=== PATIENT | female | born 1980 | race Two or more races ===

== ENCOUNTER 2023-10-18 11:17 | Emergency (ER) | payer SELFPAY ==
[~2023-10-18] VITALS: Ht 167.6 cm; Wt 107.0 kg
[2023-10-18 11:30] VITALS: BP 169/91; RESP 18; O2SAT 96
[2023-10-18 11:41] VITALS: PULSE 83
== END 2023-10-18 13:05 | disposition left against medical advice (07) ==
LOC: ER 11:17
DX: R06.02 Shortness of breath (principal); R11.0 Nausea; R07.89 Other chest pain; R55 Syncope and collapse; Z53.21 Procedure and treatment not carried out due to patient leaving prior to being seen by health care provider
CPT/HCPCS: 93005

== ENCOUNTER 2024-02-11 22:58 | Emergency (ER) | payer MEDICAID, OTHER ==
[~2024-02-11] VITALS: Ht 167.6 cm; Wt 111.3 kg
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
[2024-02-12] MEDS ORDERED: IBUP-1456 PO (01:41)
[2024-02-12] MEDS ORDERED: TIZA4TAB9 PO (01:41)
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
[2024-02-12 02:00] VITALS: BP 154/93; PULSE 97; RESP 18; TEMP 98.1; O2SAT 99
== END 2024-02-12 02:38 | disposition home or self-care (01) ==
LOC: ER 22:58
DX: S13.4XXA Sprain of ligaments of cervical spine, initial encounter (principal); S40.022A Contusion of left upper arm, initial encounter; Z79.899 Other long term (current) drug therapy; V43.62XA Car passenger injured in collision with other type car in traffic accident, initial encounter; Y93.89 Activity, other specified; Y92.410 Unspecified street and highway as the place of occurrence of the external cause; Y99.8 Other external cause status
CPT/HCPCS: 72040; 73080

== ENCOUNTER 2024-08-22 01:19 | Emergency (ER) | payer MEDICAID, OTHER ==
[~2024-08-22] VITALS: Ht 167.6 cm; Wt 104.6 kg
[2024-08-22] MEDS ORDERED: ACET500T58 PO (01:36)
[2024-08-22] MEDS ORDERED: AMOX875T4 PO (01:36)
--- NOTE | 2024-08-22 01:36 | ED.PDOC ---
Eye-HPI HPI Comments 44-year-old female presents to ER with complaints of fever x1 day. Patient reports that she has been experiencing intermittent fever and "mouth pain" x1 day. She rates her current mouth pain a 10/10. Reports that she took [id number] Tylenol 45 minutes prior to arrival to ER. Patient presents to ER afebrile, ambulatory, with steady gait, in no distress. Denies headache, nausea/vomiting, facial swelling/skin changes or any further symptoms/complaints Chief Complaint: Fever Time Seen by MD: 01:21 Primary Care Provider: JAMIN Reviewed Notes: Nurses Notes, Medications, Allergies Allergies: Coded Allergies: NO KNOWN ALLERGIES (Unverified , 11/07/11) Home Meds Active Scripts Amoxicillin & Pot Clavulanate (Amoxicillin/Potassium Cla) 875 Mg Tab, 1 TAB PO BID for 7 Days, #14 TAB 0 Refills Prov:KAY HAMPTON 08/22/24 Acetaminophen (Acetaminophen) 500 Mg Tab, 500 MG PO Q4HPRN, #30 TAB 0 Refills Prov:KAY HAMPTON 08/22/24 Information Source: Patient Past Medical History PAST MEDICAL HISTORY: Denies Surgical History: Denies all surgeries 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: No 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 Family History Family History: Unknown Social History Smoker: Non-Smoker Alcohol: Denies ETOH Use Drugs: Denies Drug Use Lives In: Home Constitutional: reports: others (As stated in HPI) EENTM: reports: others (As stated in HPI) Respiratory: denies: cough, hemoptysis, orthopnea, SOB at rest, shortness of breath, SOB with excertion, stridor, wheezing, others Cardiovascular: denies: chest pain, dizzy spells, diaphoresis, Dyspnea on exertion, edema, irregular heart beat, left arm pain, lightheadedness, palpitations, PND, syncope, others Gastrointestinal: denies: abdomen distended, abdominal pain, blood streaked bowels, constipated, diarrhea, dysphagia, difficulty swallowing, hematemesis, melena, nausea, poor appetite, poor fluid intake, rectal bleeding, rectal pain, vomiting, others Genitourinary: denies: abnormal vagina bleeding, burning, dyspareunia, dysuria, flank pain, frequency, hematuria, incontinence, pain, , vagina discharge, urgency, others Neurological: denies: dizziness, fainting, headache, left sided numbness, left sided weakness, numbness, paresthesia, pre-existing deficit, right sided numbness, right sided weakness, seizure, speech problems, tingling, tremors, weakness, others Musculoskeletal: denies: back pain, gout, joint pain, joint swelling, muscle pain, muscle stiffness, neck pain, others Integumetry: denies: bruises, change in color, change in hair/nails, dryness, laceration, lesions, lumps, rash, wounds, others Allergic/Immunocompromised: denies: Difficulty Healing, Frequent Infections, Hives, Itching, others Hematologic/Lymphatic: denies: anemia, blood clots, easy bleeding, easy bruising, swollen glands, others Endocrine: denies: excessive hunger, excessive sweating, excessive thirst, excessive urination, flushing, intolerance to cold, intolerance to heat, unexplained weight gain, unexplained weight loss, others Psychiatric: denies: anxiety, bipolar disorder, depression, hopeless, panic disorder, schizophrenia, sleepless, suicidal, others Physical Exam General Appearance: No Apparent Distress HEENT: PERRL/EOMI, Pharynx Normal, TMs Normal, Other (Mild swelling/erythema surrounding gums of lower front teeth without bleeding/drainage. No facial swelling/skin changes noted) Neck: Full Range of Motion, Non-Tender, Normal Respiratory: Chest Non-Tender, Lungs Clear, No Accessory Muscle Use, No Respiratory Distress, Normal Breath Sounds Cardiovascular: No Murmur, No Gallop, Regular Rate/Rhythm Breast Exam: Deferred Gastrointestinal: NOT DONE Genitalia: Deferred Pelvic: Deferred Rectal: Deferred Extremities: Normal capillary refill, Normal range of motion Neurologic: Alert, road engineer II-XII nml as Tested, No Motor Deficits, Normal Affect, Normal Mood, No Sensory Deficits Cerebellar Function: Normal Reflexes: Normal Skin: Dry, Normal Color, Warm Lymphatic: No Adenopathy Was a procedure done? Was a procedure done?: No Sedation Sedation?: No EENT DIFF Eye: N/A Mouth: Thrush, Other (fractured tooth, dental abscess) X-Ray, Labs, Meds, VS Patient in no distress during ER visit/prior to discharge Advised to follow up with PCP and dentist in 1-2 days Patient verbalized understanding and agreeable with current plan of care Advised to return to ER immediately if symptoms worsen Time of 1ST Reevaluation: 01:21 Reevaluation 1ST: N/A Patient Education/Counseling: Diagnosis, Treatment, Prognosis, Need For Follow Up Family Education/Counseling: No Family Present Departure 1 Departure Time of Disposition: 01:32 Impression: Primary Impression: Dental infection Disposition: 01 HOME / SELF CARE / HOMELESS Condition: Stable e-Prescriptions Amoxicillin & Pot Clavulanate (Amoxicillin/Potassium Cla) 875 Mg Tab 1 TAB PO BID for 7 Days, #14 TAB 0 Refills Prov: KAY HAMPTON 08/22/24 Acetaminophen (Acetaminophen) 500 Mg Tab 500 MG PO Q4HPRN, #30 TAB 0 Refills Prov: KAY HAMPTON 08/22/24 Discharged With: Self Critical Care Note Critical Care Time?: No Stability Stability form required: No Heart Score Heart Score: Heart Score Response (Comments) Value History N/A 0 EKG N/A 0 Age N/A 0 Risk Factors N/A 0 Troponin N/A 0 Total 0 KAY HAMPTON Aug 22, 2024 01:36
[2024-08-22 03:10] VITALS: BP 136/74; PULSE 86; RESP 18; TEMP 97.6; O2SAT 95
== END 2024-08-22 03:44 | disposition home or self-care (01) ==
LOC: ER 01:19
DX: K04.7 Periapical abscess without sinus (principal)

== ENCOUNTER 2024-12-21 16:00 | Emergency (ER) | payer BC, MEDICAID ==
[~2024-12-21] VITALS: Ht 167.6 cm; Wt 108.7 kg
[~2024-12-21 16:00] MED LIST: ACET500T58 PO; AMOX875T4 PO
[2024-12-21 16:04] VITALS: BP 160/93; PULSE 97; RESP 16; TEMP 97.3; O2SAT 98
== END 2024-12-21 19:50 | disposition left against medical advice (07) ==
LOC: ER 16:00
DX: R10.9 Unspecified abdominal pain (principal); R19.7 Diarrhea, unspecified; Z53.21 Procedure and treatment not carried out due to patient leaving prior to being seen by health care provider